=== PATIENT | female | born 1980 | race Caucasian/White ===

== ENCOUNTER → 2020-04-19 | Outpatient (CLI) | payer BC ==
[2020-04-19 17:12] LABS: African American GFR (CKD) 126.5 (60.0-200.0); Anion Gap 10.1 mmol/L (4.00-12.00); Carbon Dioxide 24.9 mmol/L (21.6-31.8); Non-African American GFR(CKD) 109.1 (60.0-200.0); Potassium 4.5 mmol/L (3.5-5.5)
[2020-04-19 19:21] LABS: Hemoglobin A1C 8.1 % (4.0-6.0)
== END | disposition home or self-care (01) ==
LOC: LABWHC1 09:05
PROVIDERS: ATTEND Internal Medicine
DX: E11.9 Type 2 diabetes mellitus without complications (principal)
CPT/HCPCS: 36415; 80051; 82565; 82947; 83036; 84520